=== PATIENT | male | born 1955 | race Two or more races ===

== ENCOUNTER 2022-12-31 07:48 | Outpatient (CLI) | payer OTHER | END 2022-12-31 09:41 | disposition home or self-care (01) | LOC: NUCLEAR 07:48 | PROVIDERS: ATTEND Internal Medicine | DX: C83.39 Diffuse large B-cell lymphoma, extranodal and solid organ sites (principal) | CPT/HCPCS: 78815; A9552 ==

== ENCOUNTER 2023-07-13 07:53 | Outpatient (CLI) | payer OTHER | END 2023-07-13 07:56 | disposition home or self-care (01) | LOC: NUCLEAR 07:53 | PROVIDERS: ATTEND Internal Medicine | DX: C83.39 Diffuse large B-cell lymphoma, extranodal and solid organ sites (principal) | CPT/HCPCS: 78815; A9552 ==

== ENCOUNTER 2024-02-22 08:06 | Outpatient (CLI) | payer OTHER | END 2024-02-22 08:07 | disposition home or self-care (01) | LOC: NUCLEAR 08:06 | PROVIDERS: ATTEND Internal Medicine | DX: C83.39 Diffuse large B-cell lymphoma, extranodal and solid organ sites (principal) | CPT/HCPCS: 78816; A9552 ==

== ENCOUNTER 2025-02-25 07:23 | Outpatient (CLI) | payer OTHER | END 2025-02-25 07:24 | disposition home or self-care (01) | LOC: NUCLEAR 07:23 | PROVIDERS: ATTEND Internal Medicine | DX: C83.390 Primary central nervous system lymphoma (principal) | CPT/HCPCS: 78815; A9552 ==